=== PATIENT | male | born 1995 | race Two or more races ===

== ENCOUNTER → 2018-01-01 | Outpatient (CLI) | payer OTHER | LOC: BMCIMAGING 15:02 | PROVIDERS: ATTEND Family Medicine | DX: M25.572 Pain in left ankle and joints of left foot (principal) ==

== ENCOUNTER 2018-01-19 15:25 | Emergency (ER) | payer OTHER ==
--- NOTE | 2018-01-19 16:12 | EDPHY ---
H & P Time Seen by Provider: 01/19/18 16:11 HPI/ROS: Chief complaint. Right calf pain and swelling HPI. 22-year-old male presents emergency department with 1 week of posterior calf pain. It hurts to walk. He has had similar symptoms off and on for more than 1 year after taking hormonal therapy. He has no symptoms above the felt thigh. No chest discomfort or shortness of breath. He was seen at [facility] today and referred to the emergency department. No history of DVT ROS 10 systems were reviewed and negative with the exception of the elements mentioned in the history of present illness Past Medical/Surgical History: Kidney surgery as an infant with sounds like it was a ureteral connection or realignment. Patient tells me that all subsequent kidney function tests have been normal including recently Social History: Single, nonsmoker, no alcohol Smoking Status: Never smoked Physical Exam: General Appearance: Alert well-developed male mild distress vital signs stable Eyes: Pupils equal and round no pallor or injection. ENT, Mouth: Mucous membranes are moist. Respiratory: There are no retractions, lungs are clear to auscultation. Cardiovascular: Regular rate and rhythm. Gastrointestinal: Abdomen is soft and nontender, no masses, bowel sounds normal. Neurological: Awake and alert, sensory and motor exams grossly normal. Skin: Warm and dry, no rashes. Musculoskeletal: Neck is supple nontender. Extremities posterior calf tenderness with slight linear erythema. No significant swelling. No symptoms above the knee Psychiatric: Patient is oriented X 3, there is no agitation. Constitutional: Initial Vital Signs Temperature (C) 36.9 C 01/19/18 15:30 Heart Rate 101 H 01/19/18 15:30 Respiratory Rate 16 01/19/18 15:30 Blood Pressure 117/95 H 01/19/18 15:30 O2 Sat (%) 97 01/19/18 15:30 O2 Delivery Mode Room Air Allergies/Adverse Reactions: No Known Allergies Allergy (Unverified 01/19/18 15:30) Home Medications: Medication Instructions Recorded NK [No Known Home Meds] 01/19/18 Medical Decision Making - Diagnostics Imaging Results: Imaging Impressions Extremity Venous Study 01/19/18 15:55 Impression: 1. No deep venous thrombosis right leg. 2. Superficial thrombophlebitis in the right calf lesser saphenous vein without extension into the popliteal vein. Findings and recommendations discussed with Emergency Department physician, ANDRZEJ BROWN at 16:26 hour, 01/19/2018. Final report concurs with initial preliminary interpretation. Ultrasound reviewed by me showed and discussed with Radiology shows no DVT. Superficial thrombophlebitis in the right lesser saphenous vein without extension into the popliteal vein ED Course/Re-evaluation: Patient does not wish to have his blood tested for kidney function. The patient and I discussed NSAIDs and potential kidney disease. We discussed the imaging study results. We discussed treatment plan including the fact that at times SVT can continue in to DVT and he would possibly need significant anticoagulation. We discussed need for follow-up and further evaluation. And repeat exam and potentially ultrasound in 5-7 days. He expresses understanding and agreement Differential Diagnosis: I considered DVT, SVT, calf strain Departure - Departure Disposition: Home, Routine, Self-Care Clinical Impression: Superficial thrombophlebitis of right leg Condition: Good Instructions: Superficial Thrombophlebitis (ED) Additional Instructions: Keep leg elevated as much as possible. Apply heat to your leg for 20 min at a time 3 times daily for the next 5 days Aspirin 325 mg daily We did not check your kidney function today as you of told me that your kidney function has recently been tested and was normal, but it is important to have Re - exam of your leg and kidney function in the next 5-7 days at [facility]. Return sooner for worsening pain and swelling Referrals: NONE *PRIMARY CARE P,. [Primary Care Provider] - As per Instructions [facility] [Outside] - 5-7 days, call for appt.
[2018-01-19 17:26] VITALS: BP 131/67
== END 2018-01-19 17:24 | disposition home or self-care (01) ==
DX: I80.01 Phlebitis and thrombophlebitis of superficial vessels of right lower extremity (principal)